=== PATIENT | female | born 1955 | race Caucasian/White ===

== ENCOUNTER 2016-10-21 19:17 | Emergency (ER) | payer OTHER ==
[~2016-10-21] VITALS: Ht 167.6 cm; Wt 107.2 kg
[~2016-10-21 19:17] MED LIST: ALEVE220 M2 PO; B12 HEALTH1000 MCG/1 PO; BACLOFEN10 MG PO; BACLOFEN20 MG PO; BACTRIM,SEPT1 TABLET PO; CAL MAG ZINC +1 EAC1 PO; CIPROFLOXACIN500 M1 PO; CLARITHROMYCIN; CLARITHROMYCIN500 MG PO; DAILY VALUE1 EACH PO; DOXYCYCLINE; DOXYCYCLINE HY100 MG PO; ELLURA200 MG PO; KEFLEX500 MG PO; KLOR-CON M2020 MEQ PO; LAC-HYDRIN 5113 GM TP; LISINOPRIL10 MG PO; MAGNESIUM200 MG/1 M PO; MEPRON; MEPRON750 MG/5 M PO; MY FAVORITE MU237 ML PO; POTASSIUM-9999 MG PO; REFRESH TEARS15 ML BOTH EYES; ROCEPHIN1000 MG IV; TOVIAZ8 MG PO; TRAMADOL HCL50 MG PO; ULTRAM50 MG PO; VALTREX1000 MG PO; VITAMIN B12 100MCG PO; VITAMIN D31000 UNIT PO; XARELTO15 MG PO; XARELTO20 MG PO; ZESTORETIC,P1 TABLET PO; Zestoretic,Prinzide PO; [UNRECOGNIZED DRUG - CODE] IM; lisinopril; valtrex; vitamins
[2016-10-21 19:53] LABS: HEMATOCRIT 44.5 % (36.0-46.0); MCH 28.7 PG (29.0-34.0); MCHC 33.7 G/DL (30.0-36.0); MCV 85.2 FL (83-99); PLATELET COUNT 150 K/uL (156-360); RBC DIS.WIDTH-CV 13.5 % (11.8-14.6); RBC DIS.WIDTH-SD 41.8 % (39-53); RED BLOOD COUNT 5.22 M/uL (3.80-5.20); WHITE BLOOD COUNT 5.5 K/uL (4.1-10.2)
[2016-10-21 20:06] LABS: CHLORIDE 101 mEq/L (99-109); POTASSIUM 4.3 mEq/L (3.7-5.4); SODIUM 137 mEq/L (136-147)
[2016-10-21 20:07] LABS: MAGNESIUM 2.1 mg/dL (1.3-2.7)
[2016-10-21 20:08] LABS: GLUCOSE 164 mg/dL (70-99)
[2016-10-21 20:10] LABS: ANION GAP 10 MEQ/L (2-14); TOTAL BILIRUBIN 0.3 mg/dL (0.0-1.0)
[2016-10-21 20:12] LABS: ALKALINE PHOSPHATASE 80 IU/L (3-129); GFR ESTIMATE (CALCULATED) > 59 mL/min/
[2016-10-21 20:13] LABS: UREA NITROGEN (BUN) 9 mg/dL (9-23)
[2016-10-21 21:07] LABS: INFLUENZA A VIRAL ANTIGEN NEGATIVE; INFLUENZA B VIRAL ANTIGEN NEGATIVE
[2016-10-21 21:24] LABS: BACTERIA 4+ /HPF; CASTS PRESENT /LPF; EPITHELIAL CELLS NONE SEEN /HPF; HYALINE CASTS 0-5 /LPF; MUCUS NONE SEEN /LPF; RED BLOOD CELLS 0-5 /HPF (0-5); WHITE BLOOD CELLS 0-5 /HPF (0-5)
[2016-10-21 21:25] LABS: CALCIUM OXALATE CRYSTALS RARE /HPF; COARSE GRANULAR CASTS 0-5 /LPF; CRYSTALS PRESENT; URINE COMMENT MIUA ON UNSPUN URINE
[2016-10-21 21:58] LABS: ADD MIUA? YES; BILIRUBIN NEGATIVE; BLOOD MODERATE; COLOR YELLOW ((YELLOW)); GLUCOSE (STRIP) NEGATIVE; KETONES NEGATIVE; LEUKOCYTES MODERATE; NITRITE POSITIVE; PROTEIN (STRIP) NEGATIVE; SPECIFIC GRAVITY 1.008 (1.000-1.030); UROBILINOGEN 0.2 MG/DL (0.2-1.0)
[2016-10-21] MEDS ORDERED: KEFLEX500 MG PO (22:10)
[2016-10-21 22:11] LABS: AMORPHOUS PHOSPHATE CRYSTALS FEW; BACTERIA 2+ /HPF; CRYSTALS PRESENT; EPITHELIAL CELLS RARE /HPF; MUCUS NONE SEEN /LPF; UCUL ADDED? NO; WHITE BLOOD CELLS 0-5 /HPF (0-5)
[2016-10-21 22:38] VITALS: BP 155/105
== END 2016-10-21 22:40 | disposition home or self-care (01) ==
LOC: EME 19:17
PROVIDERS: Physician Assistant
DX: N39.0 Urinary tract infection, site not specified (principal); R51 Headache; R05 Cough; G35 Multiple sclerosis; I10 Essential (primary) hypertension
CPT/HCPCS: 80053; 81003; 81015; 83735; 85027; 87086; 87502; 99281; 99285; J0696

== ENCOUNTER 2016-11-17 10:12 | Inpatient (IN) | payer OTHER ==
[~2016-11-17] VITALS: Ht 167.6 cm; Wt 108.5 kg
[2016-11-17 12:33] LABS: HEMATOCRIT 43.5 % (36.0-46.0); MCH 28.5 PG (29.0-34.0); MCHC 32.6 G/DL (30.0-36.0); MCV 87.3 FL (83-99); MEAN PLAT.VOLUME 9.9 uM^3 (9.5-12.4); RBC DIS.WIDTH-CV 13.2 % (11.8-14.6); RBC DIS.WIDTH-SD 41.9 % (39-53); RED BLOOD COUNT 4.98 M/uL (3.80-5.20)
[2016-11-17 12:34] LABS: ADD MIUA? YES; BILIRUBIN NEGATIVE; BLOOD SMALL; COLOR YELLOW ((YELLOW)); GLUCOSE (STRIP) NEGATIVE; KETONES NEGATIVE; LEUKOCYTES MODERATE; NITRITE POSITIVE; PROTEIN (STRIP) NEGATIVE; SPECIFIC GRAVITY 1.009 (1.000-1.030); UROBILINOGEN 0.2 MG/DL (0.2-1.0)
[2016-11-17 12:34] LABS: PLATELET COUNT 243 K/uL (156-360)
[2016-11-17 12:39] LABS: CHLORIDE 102 mEq/L (99-109); POTASSIUM 4.1 mEq/L (3.7-5.4); SODIUM 136 mEq/L (136-147)
[2016-11-17 12:41] LABS: GLUCOSE 184 mg/dL (70-99)
[2016-11-17 12:42] LABS: ANION GAP 8 MEQ/L (2-14)
[2016-11-17 12:45] LABS: GFR ESTIMATE (CALCULATED) > 59 mL/min/
[2016-11-17 12:46] LABS: UREA NITROGEN (BUN) 10 mg/dL (9-23)
[2016-11-17 12:54] LABS: D-DIMER ELISA 1.67 mg/L FEU (< 0.57)
[2016-11-17 15:05] LABS: BACTERIA RARE /HPF; EPITHELIAL CELLS NONE SEEN /HPF; RED BLOOD CELLS 0-5 /HPF (0-5); UCUL ADDED? NO; WHITE BLOOD CELLS 0-5 /HPF (0-5)
[2016-11-17 15:13] LABS: MUCUS NONE SEEN /LPF; WHITE BLOOD CELLS CLUMP MOD /HPF (0-5)
[2016-11-17] MEDS ORDERED: CIPRO500 MG PO (15:34)
[2016-11-17] MEDS ORDERED: VITAMIN B-12500 MC5 SL (18:46)
[2016-11-17] MEDS ORDERED: REFRESH PLUS1 EACH BOTH EYES (18:46)
[2016-11-17] MEDS ORDERED: ERGOCALCIF50000 UNIT PO (18:47)
[2016-11-17] MEDS ORDERED: ZEASORB POWDE70.9 GM TP (18:48)
[2016-11-17] MEDS ORDERED: CLOTRIM ANTIFUN15 GM TP (18:48)
[2016-11-17] MEDS ORDERED: LISINOPRIL40 MG PO (18:49)
[2016-11-17 19:26] LABS: INTER. NORMALIZED RATIO 1.1; PROTHROMBIN TIME 11.2 (9.2-11.2); PTT 28.8 (25-32)
[2016-11-17 23:02] VITALS: BP 181/95
[2016-11-18 04:00] VITALS: BP 141/76
[2016-11-18 07:22] VITALS: BP 139/68
[2016-11-18 07:45] LABS: HEMATOCRIT 39.2 % (36.0-46.0); MCH 28.4 PG (29.0-34.0); MCHC 32.7 G/DL (30.0-36.0); MCV 86.9 FL (83-99); MEAN PLAT.VOLUME 10.1 uM^3 (9.5-12.4); PLATELET COUNT 219 K/uL (156-360); RBC DIS.WIDTH-CV 13.6 % (11.8-14.6); RED BLOOD COUNT 4.51 M/uL (3.80-5.20); WHITE BLOOD COUNT 8.8 K/uL (4.1-10.2)
[2016-11-18 07:57] LABS: ALKALINE PHOSPHATASE 67 IU/L (3-129); ANION GAP 6 MEQ/L (2-14); CHLORIDE 100 MEQ/L (99-109); GFR ESTIMATE (CALCULATED) > 59 mL/min/; GLUCOSE 186 mg/dL (70-99); POTASSIUM 4.1 MEQ/L (3.7-5.4); SAMPLE HEMOLYSIS CHECK 0; SAMPLE ICTERIC CHECK 0; SAMPLE LIPEMIA CHECK 0; SODIUM 134 MEQ/L (136-147); TOTAL BILIRUBIN 0.6 MG/DL (0.0-1.0); UREA NITROGEN (BUN) 8 mg/dL (9-23)
[2016-11-18 11:20] VITALS: BP 144/73
[2016-11-18 15:25] VITALS: BP 131/78
[2016-11-18 20:07] VITALS: BP 139/90
[2016-11-18 23:37] VITALS: BP 127/69
[2016-11-19 03:32] VITALS: BP 116/51
[2016-11-19 07:26] VITALS: BP 115/69
[2016-11-19 11:32] VITALS: BP 131/90
[2016-11-19 15:51] VITALS: BP 146/90
[2016-11-19 20:00] VITALS: BP 131/84
[2016-11-20 00:59] VITALS: BP 128/68
[2016-11-20 04:28] VITALS: BP 106/64
[2016-11-20 07:18] LABS: HEMATOCRIT 37.6 % (36.0-46.0); MCH 28.3 PG (29.0-34.0); MCHC 32.4 G/DL (30.0-36.0); MCV 87.2 FL (83-99); PLATELET COUNT 222 K/uL (156-360); RBC DIS.WIDTH-CV 13.8 % (11.8-14.6); RBC DIS.WIDTH-SD 44.3 % (39-53); RED BLOOD COUNT 4.31 M/uL (3.80-5.20); WHITE BLOOD COUNT 8.1 K/uL (4.1-10.2)
[2016-11-20 09:12] VITALS: BP 130/76
[2016-11-20] MEDS ORDERED: ELIQUIS5 MG PO ×2 (09:12→09:13)
[2016-11-20] MEDS ORDERED: LEVAQUIN500 MG PO (09:18)
[2016-11-20 12:25] VITALS: BP 126/78
[2016-11-20 16:36] VITALS: BP 129/83
== END 2016-11-20 18:20 | disposition home or self-care (01) | DRG 299 ==
LOC: EME 10:12 → 5SOUTH 20:05 → EDOF 20:05 → 5SOUTH 23:34
PROVIDERS: Emergency Medicine; Hospitalist; Physician Assistant Medical
DX: I82.443 Acute embolism and thrombosis of tibial vein, bilateral (principal); I26.99 Other pulmonary embolism without acute cor pulmonale; N30.01 Acute cystitis with hematuria; T83.511A Infection and inflammatory reaction due to indwelling urethral catheter, initial encounter; G35 Multiple sclerosis; Z74.01 Bed confinement status; Z99.3 Dependence on wheelchair; I10 Essential (primary) hypertension; Z86.010 Personal history of colon polyps; Z91.041 Radiographic dye allergy status
CPT/HCPCS: 71275; 80048; 80053; 81003; 85027; 85379; 85610; 85730; 87077; 87086; 87186; 93005; 93306; 93970; 99281; 99285; J0696; J7030; J7050

== ENCOUNTER 2017-04-26 13:12 | Inpatient (IN) | payer OTHER ==
[~2017-04-26] VITALS: Ht 167.6 cm; Wt 118.6 kg
[~2017-04-26 13:12] MED LIST changes: +CIPRO500 MG PO; +CLOTRIM ANTIFUN15 GM TP; +ELIQUIS5 MG PO; +ERGOCALCIF50000 UNIT PO; +GERI-HYDROLAC222 ML TP; -LAC-HYDRIN 5113 GM TP; +LEVAQUIN500 MG PO; +LISINOPRIL40 MG PO; +REFRESH PLUS1 EACH BOTH EYES; +VITAMIN B-12500 MC5 SL; +ZEASORB POWDE70.9 GM TP
[2017-04-26 15:17] LABS: HEMATOCRIT 47.6 % (36.0-46.0); MCH 28.8 PG (29.0-34.0); MCHC 33.6 G/DL (30.0-36.0); MCV 85.6 FL (83-99); PLATELET COUNT 216 K/uL (156-360); RBC DIS.WIDTH-CV 12.9 % (11.8-14.6); RBC DIS.WIDTH-SD 39.8 % (39-53); RED BLOOD COUNT 5.56 M/uL (3.80-5.20); WHITE BLOOD COUNT 14.9 K/uL (4.1-10.2)
[2017-04-26 15:25] LABS: CHLORIDE 102 mEq/L (99-109); POTASSIUM 4.2 mEq/L (3.7-5.4); SODIUM 136 mEq/L (136-147)
[2017-04-26 15:27] LABS: GLUCOSE 246 mg/dL (70-99)
[2017-04-26 15:29] LABS: ANION GAP 11 MEQ/L (2-14); TOTAL BILIRUBIN 0.5 mg/dL (0.0-1.0)
[2017-04-26 15:30] LABS: ALKALINE PHOSPHATASE 81 IU/L (3-129)
[2017-04-26 15:31] LABS: GFR ESTIMATE (CALCULATED) > 59 mL/min/
[2017-04-26 15:32] LABS: UREA NITROGEN (BUN) 13 mg/dL (9-23)
[2017-04-26 19:55] LABS: ADD MIUA? YES; BILIRUBIN NEGATIVE; BLOOD LARGE; COLOR BLOODY ((YELLOW)); GLUCOSE (STRIP) 100; KETONES 15; LEUKOCYTES SMALL; NITRITE NEGATIVE; PH, URINE 7.5 (5-8); PROTEIN (STRIP) 2000; SPECIFIC GRAVITY 1.013 (1.000-1.030); UROBILINOGEN 0.2 MG/DL (0.2-1.0)
[2017-04-26 19:56] LABS: RED BLOOD CELLS TNTC /HPF (0-5); UCUL ADDED? YES
[2017-04-26] MEDS ORDERED: ELIQUIS5 MG PO (21:20)
[2017-04-26] MEDS ORDERED: COLACE100 MG PO (21:24)
[2017-04-26] MEDS ORDERED: METHENAMINE HIPP1 G1 PO (21:24)
[2017-04-26] MEDS ORDERED: VOLTAREN 1% GE100 GM TP (21:24)
[2017-04-27] VITALS (7 sets, daily range): BP systolic 103–157; BP diastolic 54–83
[2017-04-28 00:28] VITALS: BP 137/62
[2017-04-28 04:00] VITALS: BP 131/63
[2017-04-28 05:43] LABS: EOSINOPHIL (%) 2.4 % (0-5); EOSINOPHIL COUNT 0.2 K/uL (0-0.3); HEMATOCRIT 37.8 % (36.0-46.0); IMMATURE GRANULOCYTE (%) 0.4 % (0.0-0.7); INSTRUMENT ABS NEUTROPHIL CT 5.1 K/uL; LYMPHOCYTE COUNT 1.7 K/uL (1.0-2.8); MCH 29.9 PG (29.0-34.0); MCHC 33.6 G/DL (30.0-36.0); MCV 88.9 FL (83-99); MEAN PLAT.VOLUME 10.4 uM^3 (9.5-12.4); MONOCYTE (%) 12.4 % (3-12); NEUTROPHIL (%) 63.3 % (45-76); NEUTROPHIL COUNT 5.1 K/uL (1.8-6.4); PLATELET COUNT 161 K/uL (156-360); RBC DIS.WIDTH-CV 13.3 % (11.8-14.6); RBC DIS.WIDTH-SD 43.4 % (39-53); WHITE BLOOD COUNT 8.1 K/uL (4.1-10.2)
[2017-04-28 05:46] LABS: RED BLOOD COUNT 4.25 M/uL (3.80-5.20)
[2017-04-28 06:03] LABS: ANION GAP 10 MEQ/L (2-14); CHLORIDE 104 MEQ/L (99-109); GFR ESTIMATE (CALCULATED) > 59 mL/min/; GLUCOSE 208 mg/dL (70-99); POTASSIUM 3.9 MEQ/L (3.7-5.4); SAMPLE HEMOLYSIS CHECK 0; SAMPLE ICTERIC CHECK 0; SAMPLE LIPEMIA CHECK 0; SODIUM 139 MEQ/L (136-147); UREA NITROGEN (BUN) 7 mg/dL (9-23)
[2017-04-28 08:45] VITALS: BP 138/77
[2017-04-28] MEDS ORDERED: CEFTIN500 MG PO (13:46)
[2017-04-28 15:59] VITALS: BP 124/64
== END 2017-04-28 18:15 | disposition home or self-care (01) | DRG 872 ==
LOC: EME 13:12 → EDOF 22:29 → ENRESERV 22:32 → EDOF 04-27 00:48 → 5WEST 04-27 00:49 → CANRESERV 04-27 03:28 → ENRESERV 04-27 03:28 → 5WEST 04-27 03:29
PROVIDERS: Hospitalist; Nurse Practitioner Family
PROC: 0TPB70Z Removal of Drainage Device from Bladder, Via Natural or Artificial Opening (ICD-10-PCS; principal; 2017-04-26)
PROC: 0WHR8YZ Insertion of Other Device into Genitourinary Tract, Via Natural or Artificial Opening Endoscopic (ICD-10-PCS; principal; 2017-04-26)
DX: A41.9 Sepsis, unspecified organism (principal); G35 Multiple sclerosis; I10 Essential (primary) hypertension; T83.090A Other mechanical complication of cystostomy catheter, initial encounter; N30.21 Other chronic cystitis with hematuria; N31.9 Neuromuscular dysfunction of bladder, unspecified; N21.0 Calculus in bladder; I73.9 Peripheral vascular disease, unspecified; E78.5 Hyperlipidemia, unspecified; R33.9 Retention of urine, unspecified; Z68.41 Body mass index [BMI] 40.0-44.9, adult; Z87.440 Personal history of urinary (tract) infections; Z87.442 Personal history of urinary calculi
CPT/HCPCS: 74000; 80048; 80053; 81003; 83605; 85025; 85027; 87040; 87077; 87086; 87186; 94799; 99281; 99285; C1769; G0378; J0696; J2405; J3010; J7030; J7050

== ENCOUNTER 2017-11-30 12:37 | Inpatient (IN) | payer OTHER ==
[~2017-11-30] VITALS: Ht 165.1 cm; Wt 104.5 kg
[~2017-11-30 12:37] MED LIST changes: +CEFTIN500 MG PO; +COLACE100 MG PO; +METHENAMINE HIPP1 G1 PO; +VOLTAREN 1% GE100 GM TP
[2017-11-30 14:08] LABS: HEMATOCRIT 44.6 % (36.0-46.0); MCHC 33.6 G/DL (30.0-36.0); MCV 86.1 FL (83-99); PLATELET COUNT 192 K/uL (156-360); RBC DIS.WIDTH-CV 13.8 % (11.8-14.6); RBC DIS.WIDTH-SD 43.3 % (39-53); RED BLOOD COUNT 5.18 M/uL (3.80-5.20); WHITE BLOOD COUNT 17.6 K/uL (4.1-10.2)
[2017-11-30 14:16] LABS: ALBUMIN 3.7 g/dL (3.2-4.8); CHLORIDE 98 mEq/L (99-109); POTASSIUM 4.8 mEq/L (3.7-5.4); SODIUM 131 mEq/L (136-147)
[2017-11-30 14:18] LABS: TOTAL PROTEIN 7.4 g/dL (6.4-8.3)
[2017-11-30 14:20] LABS: GLUCOSE 346 mg/dL (70-99); TOTAL BILIRUBIN 1.4 mg/dL (0.0-1.0)
[2017-11-30 14:22] LABS: ALKALINE PHOSPHATASE 87 IU/L (3-129); CREATININE 0.8 mg/dL (0.6-1.3); GFR ESTIMATE (CALCULATED) > 59 mL/min/
[2017-11-30 14:23] LABS: UREA NITROGEN (BUN) 15 mg/dL (9-23)
[2017-11-30 14:24] LABS: AST (GOT) 23 IU/L (2-34)
[2017-11-30 14:25] LABS: ALT (GPT) 22 IU/L (3-49)
[2017-11-30 14:54] LABS: APPEARANCE TURBID ((CLEAR)); BILIRUBIN NEGATIVE; BLOOD MODERATE; GLUCOSE (STRIP) 150; KETONES 5; LEUKOCYTES MODERATE; NITRITE NEGATIVE; PROTEIN (STRIP) 100; UROBILINOGEN 0.2 MG/DL (0.2-1.0)
[2017-11-30 14:58] LABS: COLOR LT.RED ((YELLOW))
[2017-11-30 15:13] LABS: RED BLOOD CELLS TNTC /HPF (0-5); UCUL ADDED? YES; WHITE BLOOD CELLS TNTC /HPF (0-5)
[2017-11-30] MEDS ORDERED: ATENOLOL100 MG PO (16:24)
[2017-11-30] MEDS ORDERED: OXYBUTYNIN CHLO10 MG PO (16:25)
[2017-11-30 18:23] VITALS: BP 102/64
[2017-11-30 19:45] VITALS: BP 140/67
[2017-12-01] VITALS (9 sets, daily range): BP systolic 112–178; BP diastolic 56–93
[2017-12-01 07:28] LABS: HEMATOCRIT 38.9 % (36.0-46.0); MCH 28.5 PG (29.0-34.0); MCHC 32.1 G/DL (30.0-36.0); MCV 88.8 FL (83-99); RBC DIS.WIDTH-CV 14.1 % (11.8-14.6); RBC DIS.WIDTH-SD 45.5 % (39-53); RED BLOOD COUNT 4.38 M/uL (3.80-5.20)
[2017-12-01 07:29] LABS: HEMOGLOBIN 12.5 G/DL (11.9-15.5)
[2017-12-01 07:32] LABS: PLAT.SUFFICIENCY DECREASED
[2017-12-01 08:51] LABS: PLATELET COUNT 133 K/uL (156-360)
[2017-12-01 09:04] LABS: CREATININE 0.8 MG/DL (0.6-1.3); GFR ESTIMATE (CALCULATED) > 59 mL/min/; GLUCOSE 245 mg/dL (70-99); SODIUM 135 MEQ/L (136-147); UREA NITROGEN (BUN) 14 mg/dL (9-23)
[2017-12-01 09:05] LABS: CHLORIDE 105 MEQ/L (99-109); POTASSIUM 3.8 MEQ/L (3.7-5.4)
[2017-12-02] VITALS (7 sets, daily range): BP systolic 99–171; BP diastolic 55–77
[2017-12-02 06:53] LABS: HEMATOCRIT 33.8 % (36.0-46.0); HEMOGLOBIN 11.4 G/DL (11.9-15.5); MCH 28.9 PG (29.0-34.0); MCHC 33.7 G/DL (30.0-36.0); MCV 85.8 FL (83-99); PLATELET COUNT 110 K/uL (156-360); RBC DIS.WIDTH-CV 13.9 % (11.8-14.6); RED BLOOD COUNT 3.94 M/uL (3.80-5.20); WHITE BLOOD COUNT 8.5 K/uL (4.1-10.2)
[2017-12-02 07:05] LABS: CHLORIDE 105 MEQ/L (99-109); GFR ESTIMATE (CALCULATED) > 59 mL/min/; GLUCOSE 289 mg/dL (70-99); POTASSIUM 3.8 MEQ/L (3.7-5.4); SODIUM 134 MEQ/L (136-147); UREA NITROGEN (BUN) 17 mg/dL (9-23)
[2017-12-02 09:34] LABS: HEMOGLOBIN A1c (GLYCOHEMOGLOB) 9.7 % (Below 5.7)
[2017-12-03 00:35] VITALS: BP 114/55
[2017-12-03 03:35] VITALS: BP 104/57
[2017-12-03 06:38] LABS: CHLORIDE 110 MEQ/L (99-109); CREATININE 0.8 MG/DL (0.6-1.3); GFR ESTIMATE (CALCULATED) > 59 mL/min/; GLUCOSE 228 mg/dL (70-99); POTASSIUM 3.4 MEQ/L (3.7-5.4); SODIUM 140 MEQ/L (136-147); UREA NITROGEN (BUN) 14 mg/dL (9-23)
[2017-12-03 08:15] VITALS: BP 150/81
[2017-12-03 11:40] VITALS: BP 97/53
[2017-12-03 20:33] VITALS: BP 166/81
[2017-12-04 00:27] VITALS: BP 159/80
[2017-12-04 04:04] VITALS: BP 150/60; BP 150/70
[2017-12-04 06:24] LABS: CHLORIDE 108 MEQ/L (99-109); CREATININE 0.6 MG/DL (0.6-1.3); GFR ESTIMATE (CALCULATED) > 59 mL/min/; GLUCOSE 195 mg/dL (70-99); POTASSIUM 3.4 MEQ/L (3.7-5.4); SODIUM 137 MEQ/L (136-147); UREA NITROGEN (BUN) 9 mg/dL (9-23)
[2017-12-04 08:07] VITALS: BP 140/70
[2017-12-04 09:55] LABS: MAGNESIUM 1.8 mg/dl (1.3-2.7)
[2017-12-04 11:15] VITALS: BP 166/80
[2017-12-04 16:05] VITALS: BP 173/78
[2017-12-04 16:10] VITALS: BP 164/78
[2017-12-05 00:05] VITALS: BP 163/72
[2017-12-05 07:02] LABS: HEMATOCRIT 33.1 % (36.0-46.0); HEMOGLOBIN 11.1 G/DL (11.9-15.5); MCH 28.5 PG (29.0-34.0); MCHC 33.5 G/DL (30.0-36.0); MCV 85.1 FL (83-99); RBC DIS.WIDTH-CV 13.9 % (11.8-14.6); RED BLOOD COUNT 3.89 M/uL (3.80-5.20); WHITE BLOOD COUNT 6.9 K/uL (4.1-10.2)
[2017-12-05 07:21] LABS: CHLORIDE 103 MEQ/L (99-109); CREATININE 0.6 MG/DL (0.6-1.3); GFR ESTIMATE (CALCULATED) > 59 mL/min/; GLUCOSE 179 mg/dL (70-99); POTASSIUM 3.2 MEQ/L (3.7-5.4); SODIUM 139 MEQ/L (136-147); UREA NITROGEN (BUN) 9 mg/dL (9-23)
[2017-12-05 07:32] VITALS: BP 158/72
[2017-12-05 07:36] LABS: PLATELET COUNT 187 K/uL (156-360)
[2017-12-05] MEDS ORDERED: CEFDINIR300 MG PO (09:01)
[2017-12-05] MEDS ORDERED: LEVEMIR100 UNIT/2 SC ×2 (09:01→14:35)
[2017-12-05] MEDS ORDERED: LEVEMIR FL100 UNIT/1 SC (10:20)
[2017-12-05] MEDS ORDERED: INSULIN SYRING MC (14:35)
== END 2017-12-05 16:15 | disposition home health service (06) | DRG 698 ==
LOC: EME 12:37 → EDOF 16:00 → 2EAST 16:00 → ENRESERV 16:01 → 2EAST 17:26
PROVIDERS: Hospitalist; Internal Medicine; Physician Assistant
DX: T83.510A Infection and inflammatory reaction due to cystostomy catheter, initial encounter (principal); Y84.6 Urinary catheterization as the cause of abnormal reaction of the patient, or of later complication, without mention of misadventure at the time of the procedure; A41.51 Sepsis due to Escherichia coli [E. coli]; N39.0 Urinary tract infection, site not specified; B96.4 Proteus (mirabilis) (morganii) as the cause of diseases classified elsewhere; G35 Multiple sclerosis; N13.2 Hydronephrosis with renal and ureteral calculous obstruction; E87.1 Hypo-osmolality and hyponatremia; N31.9 Neuromuscular dysfunction of bladder, unspecified; N32.89 Other specified disorders of bladder; I10 Essential (primary) hypertension; E11.65 Type 2 diabetes mellitus with hyperglycemia; E11.51 Type 2 diabetes mellitus with diabetic peripheral angiopathy without gangrene; K59.00 Constipation, unspecified; R00.0 Tachycardia, unspecified; A69.20 Lyme disease, unspecified; E78.5 Hyperlipidemia, unspecified; Z86.711 Personal history of pulmonary embolism; Z86.718 Personal history of other venous thrombosis and embolism; Z86.010 Personal history of colon polyps; Z99.3 Dependence on wheelchair; Z87.442 Personal history of urinary calculi; Z87.440 Personal history of urinary (tract) infections; Z79.01 Long term (current) use of anticoagulants
CPT/HCPCS: 36415; 71045; 74176; 80048; 80053; 81003; 82948; 83036; 83605; 83735; 85025; 85027; 85610; 85730; 87040; 87077; 87086; 87186; 87801; 94799; 97530 GP; 99281; 99285; J0360; J0696; J1815; J2405; J2543; J3370; J7030; J7050

== ENCOUNTER 2017-12-19 21:40 | Emergency (ER) | payer OTHER ==
[~2017-12-19] VITALS: Ht 167.6 cm; Wt 109.0 kg
[~2017-12-19 21:40] MED LIST changes: +ATENOLOL100 MG PO; +CEFDINIR300 MG PO; +INSULIN SYRING MC; +LEVEMIR FL100 UNIT/1 SC; +LEVEMIR100 UNIT/2 SC; +OXYBUTYNIN CHLO10 MG PO
[2017-12-19 22:27] VITALS: BP 161/80
== END 2017-12-19 22:28 | disposition home or self-care (01) ==
LOC: EME 21:40
DX: R00.1 Bradycardia, unspecified (principal); I10 Essential (primary) hypertension; E78.5 Hyperlipidemia, unspecified; E11.51 Type 2 diabetes mellitus with diabetic peripheral angiopathy without gangrene; Z79.01 Long term (current) use of anticoagulants; G35 Multiple sclerosis; Z86.711 Personal history of pulmonary embolism; Z87.440 Personal history of urinary (tract) infections; Z98.51 Tubal ligation status; Z91.041 Radiographic dye allergy status
CPT/HCPCS: 82948; 99281; 99283

== ENCOUNTER 2017-12-28 10:20 | Inpatient (IN) | payer OTHER ==
[~2017-12-28] VITALS: Ht 167.6 cm; Wt 104.5 kg
[2017-12-28 12:52] LABS: INTER. NORMALIZED RATIO 1.9
[2017-12-28 12:54] LABS: CARBON DIOXIDE (BICARBONATE) 31.5 MEQ/L (20-31)
[2017-12-28 12:55] LABS: ALBUMIN 4.1 g/dL (3.2-4.8); CHLORIDE 94 mEq/L (99-109); POTASSIUM 4.2 mEq/L (3.7-5.4); PTT 35.6 SEC (25-37); SODIUM 133 mEq/L (136-147)
[2017-12-28 12:57] LABS: GLUCOSE 276 mg/dL (70-99)
[2017-12-28 12:58] LABS: TOTAL PROTEIN 8.3 g/dL (6.4-8.3)
[2017-12-28 12:59] LABS: TOTAL BILIRUBIN 1.1 mg/dL (0.0-1.0)
[2017-12-28 13:01] LABS: ALKALINE PHOSPHATASE 107 IU/L (3-129); CREATININE 0.8 mg/dL (0.6-1.3); GFR ESTIMATE (CALCULATED) > 59 mL/min/
[2017-12-28 13:02] LABS: UREA NITROGEN (BUN) 9 mg/dL (9-23)
[2017-12-28 13:03] LABS: AST (GOT) 23 IU/L (2-34)
[2017-12-28 13:04] LABS: ALT (GPT) 32 IU/L (3-49); LIPASE 4 U/L (1.0-51.0)
[2017-12-28 13:06] LABS: BASOPHIL (%) 0.2 % (0-1); EOSINOPHIL (%) 0 % (0-5); HEMATOCRIT 39.7 % (36.0-46.0); IMMATURE GRANULOCYTE (%) 0.5 % (0.0-0.7); LYMPHOCYTE (%) 6.4 % (15-42); LYMPHOCYTE COUNT 0.8 K/uL (1.0-2.8); MCH 28.9 PG (29.0-34.0); MONOCYTE (%) 12.6 % (3-12); MONOCYTE COUNT 1.6 K/uL (0-0.8); NEUTROPHIL (%) 80.3 % (45-76); NEUTROPHIL COUNT 10.3 K/uL (1.8-6.4); PLATELET COUNT 194 K/uL (156-360); RBC DIS.WIDTH-CV 13.8 % (11.8-14.6); TROP-I INTERPRETATION NEGATIVE; TROPONIN-I < 0.01 ng/mL (0.0-0.30); WHITE BLOOD COUNT 12.8 K/uL (4.1-10.2)
[2017-12-28 13:07] LABS: HEMOGLOBIN 13.5 G/DL (11.9-15.5); RED BLOOD COUNT 4.67 M/uL (3.80-5.20)
[2017-12-28 13:30] LABS: APPEARANCE CLOUDY ((CLEAR)); BILIRUBIN NEGATIVE; BLOOD MODERATE; COLOR YELLOW ((YELLOW)); GLUCOSE (STRIP) 150; KETONES NEGATIVE; LEUKOCYTES LARGE; NITRITE NEGATIVE; PROTEIN (STRIP) 30; SPECIFIC GRAVITY 1.005 (1.000-1.030); UROBILINOGEN 0.2 MG/DL (0.2-1.0)
[2017-12-28 13:37] LABS: BACTERIA 2+ /HPF; EPITHELIAL CELLS 1+ /HPF; MUCUS NONE SEEN /LPF; RED BLOOD CELLS 20-30 /HPF (0-5); UCUL ADDED? YES; WHITE BLOOD CELLS TNTC /HPF (0-5)
[2017-12-28 16:40] VITALS: BP 168/77
[2017-12-28 23:09] VITALS: BP 134/86
[2017-12-29 06:34] LABS: HEMATOCRIT 34.9 % (36.0-46.0); MCH 27.7 PG (29.0-34.0); MCHC 32.4 G/DL (30.0-36.0); MCV 85.5 FL (83-99); PLATELET COUNT 160 K/uL (156-360); RBC DIS.WIDTH-CV 14.3 % (11.8-14.6); RBC DIS.WIDTH-SD 44.6 % (39-53); RED BLOOD COUNT 4.08 M/uL (3.80-5.20); WHITE BLOOD COUNT 8.6 K/uL (4.1-10.2)
[2017-12-29 06:35] LABS: HEMOGLOBIN 11.3 G/DL (11.9-15.5)
[2017-12-29 06:46] LABS: CHLORIDE 102 MEQ/L (99-109); CREATININE 0.7 MG/DL (0.6-1.3); GFR ESTIMATE (CALCULATED) > 59 mL/min/; GLUCOSE 215 mg/dL (70-99); POTASSIUM 3.5 MEQ/L (3.7-5.4); SODIUM 135 MEQ/L (136-147); UREA NITROGEN (BUN) 8 mg/dL (9-23)
[2017-12-29 06:55] VITALS: BP 125/61
[2017-12-29 11:00] VITALS: BP 127/64
[2017-12-29 15:00] VITALS: BP 122/66
[2017-12-29 18:44] VITALS: BP 112/56
[2017-12-29 22:58] VITALS: BP 120/56
[2017-12-30 03:38] VITALS: BP 128/59
[2017-12-30 08:42] VITALS: BP 103/58
[2017-12-30 11:47] VITALS: BP 119/61
[2017-12-30 15:58] VITALS: BP 127/72
[2017-12-30 19:19] VITALS: BP 144/69
[2017-12-30 23:20] VITALS: BP 126/64
[2017-12-31 03:13] VITALS: BP 145/70
[2017-12-31 06:09] LABS: BASOPHIL (%) 0.2 % (0-1); EOSINOPHIL COUNT 0.3 K/uL (0-0.3); HEMATOCRIT 32.5 % (36.0-46.0); HEMOGLOBIN 10.7 G/DL (11.9-15.5); IMMATURE GRANULOCYTE (%) 0.2 % (0.0-0.7); LYMPHOCYTE (%) 22.7 % (15-42); LYMPHOCYTE COUNT 1.1 K/uL (1.0-2.8); MCHC 32.9 G/DL (30.0-36.0); MCV 85.1 FL (83-99); MONOCYTE (%) 14.3 % (3-12); MONOCYTE COUNT 0.7 K/uL (0-0.8); NEUTROPHIL (%) 56.6 % (45-76); NEUTROPHIL COUNT 2.8 K/uL (1.8-6.4); PLATELET COUNT 160 K/uL (156-360); RBC DIS.WIDTH-CV 14.3 % (11.8-14.6); RBC DIS.WIDTH-SD 44.1 % (39-53); RED BLOOD COUNT 3.82 M/uL (3.80-5.20)
[2017-12-31 06:35] LABS: CHLORIDE 109 MEQ/L (99-109); CREATININE 0.6 MG/DL (0.6-1.3); GFR ESTIMATE (CALCULATED) > 59 mL/min/; GLUCOSE 138 mg/dL (70-99); POTASSIUM 3.2 MEQ/L (3.7-5.4); SODIUM 141 MEQ/L (136-147); UREA NITROGEN (BUN) 6 mg/dL (9-23)
[2017-12-31 07:29] VITALS: BP 141/69
[2017-12-31 16:27] VITALS: BP 137/70
[2018-01-01 00:35] VITALS: BP 148/75
[2018-01-01 06:32] LABS: CHLORIDE 107 MEQ/L (99-109); CREATININE 0.5 MG/DL (0.6-1.3); GFR ESTIMATE (CALCULATED) > 59 mL/min/; GLUCOSE 179 mg/dL (70-99); POTASSIUM 3.7 MEQ/L (3.7-5.4); SODIUM 140 MEQ/L (136-147); UREA NITROGEN (BUN) 6 mg/dL (9-23)
[2018-01-01 08:00] VITALS: BP 139/79
[2018-01-01] MEDS ORDERED: LEVAQUIN750 MG PO (12:10)
[2018-01-01] MEDS ORDERED: FLORASTOR250 MG PO (12:14)
== END 2018-01-01 15:35 | disposition home or self-care (01) | DRG 872 ==
LOC: EME 10:20 → 5EAST 14:15 → EDOF 14:15 → ENRESERV 14:21 → 5EAST 16:30 → ENPENDDIS 01-01 → 5EAST 01-01 15:35
PROVIDERS: Emergency Medicine; Family Medicine; Hospitalist; Student in an Organized Health Care Education/Training Program
DX: A41.52 Sepsis due to Pseudomonas (principal); I10 Essential (primary) hypertension; G35 Multiple sclerosis; N39.0 Urinary tract infection, site not specified; Z96.0 Presence of urogenital implants; T83.510A Infection and inflammatory reaction due to cystostomy catheter, initial encounter; E87.2 Acidosis; N31.9 Neuromuscular dysfunction of bladder, unspecified; E11.51 Type 2 diabetes mellitus with diabetic peripheral angiopathy without gangrene; R78.81 Bacteremia; E87.6 Hypokalemia; E87.1 Hypo-osmolality and hyponatremia; K59.00 Constipation, unspecified; Y84.6 Urinary catheterization as the cause of abnormal reaction of the patient, or of later complication, without mention of misadventure at the time of the procedure; Z79.4 Long term (current) use of insulin; Z82.0 Family history of epilepsy and other diseases of the nervous system; Z23 Encounter for immunization; Z86.718 Personal history of other venous thrombosis and embolism; Z87.440 Personal history of urinary (tract) infections; Z79.01 Long term (current) use of anticoagulants; Z79.899 Other long term (current) drug therapy; Z86.711 Personal history of pulmonary embolism; Z93.59 Other cystostomy status; Z99.3 Dependence on wheelchair; Z86.010 Personal history of colon polyps
CPT/HCPCS: 71045; 80048; 80053; 81003; 82803; 82948; 83605; 83690; 84484; 85025; 85027; 85610; 85730; 87040; 87077; 87086; 87186; 87801; 93005; 99281; 99285; J0692; J1815; J2543; J3370; J7030; J7050